=== PATIENT | male | born 1945 | race Caucasian/White ===

== ENCOUNTER 2016-05-11 06:09 | Day surgery (SDC) | payer BC ==
[~2016-05-11] VITALS: Ht 175.3 cm; Wt 66.4 kg
[2016-05-11] VITALS (7 sets, daily range): BP systolic 119–152; BP diastolic 67–98; PULSE 71–83; RESP 16–20; TEMP 97.6–98.8; O2SAT 9–95
[~2016-05-11 06:09] MED LIST: ADVA100A INH; APIX5TAB PO; CALC500T37 PO; CHOL50008 PO; FERR1TAB36 PO; FOLI400T PO; MAGN400T2 PO; METO50TA PO; MULTTAB67 PO; OMEGCAP PO; SPIRCAP INH; VITA10004 PO; VYTO10TA9 PO
[2016-05-11] MEDS ORDERED: SODIUM CHLORIDE 0.9% 1000 ML IV SCH (06:45)
[2016-05-11] MEDS ORDERED: POVIDONE IODINE 5% (ANTISEPSIS KIT) 4 APPLICATIONS EACH NARE SCH (06:45)
[2016-05-11] MEDS ORDERED: CHLORHEXIDINE GLUCONATE 2 % 1 PACK (2 CLOTHS) TOPICAL SCH (06:45)
[2016-05-11] MEDS ORDERED: ceFAZolin 2 GM PREMIX 50 ML - implanted port/tunneled catheter insertion IV SCH (06:45)
[2016-05-11] MEDS: VANCOMYCIN 1000 MG/NS 250 ML - implanted port/tunneled catheter IV SCH ×4 (07:36→09:09)
[2016-05-11] MEDS ORDERED: MIDAZOLAM HCL 5 MG/5 ML VIAL ONE (08:05)
[2016-05-11] MEDS ORDERED: fentaNYL CITRATE 250 MCG/5 ML AMP ONE (08:05)
[2016-05-11] MEDS ORDERED: LIDOCAINE 1%/EPINEPHrine 1:100,000 SOLN 20 ML VIAL ONE (08:12)
--- NOTE | 2016-05-11 09:14 | PD.RAD ---
Post Procedure Progress Note Pre Procedure Diagnosis: (1) Carcinoma of ascending colon Post Procedure Diagnosis: (1) Carcinoma of ascending colon Procedure Date: May 11, 2016 Supervising Radiologist: Ariel Patrick Proceduralist/Assist: José Miguel Metz RT(R), RT Andres(R) Anesthesia: Conscious Sedation Plan of Activity Patient to Unit: ROPU Patient Condition: Good See PACS Report for procedural detail/treatment Central Venous Access Device Procedure 1 Right Internal Jugular Infusaport Placement single lumen Ariel Patrick MD May 11, 2016 09:14
[2016-05-11] MEDS ORDERED: SODIUM CHLORIDE 0.9% FLUSH 5 ML FLUSH IVF PRN (09:15)
--- NOTE | 2016-05-11 11:39 | RADRPT ---
EXAM DATE/TIME: 05/11/2016 08:02 [place] COMPARISON: No previous studies available for comparison. INDICATIONS : Patient presents with malignant neoplasm of cecum in need of port placement for chemotherapy treatmen t. MEDICAL HISTORY : Skin cancer COPD Anemia Smoker Cecum cancer AFIB Hemorroids SURGICAL HISTORY : Bronchoscopy Coronary angiogram Cervical lymph node bx Partial colectomy Colonoscopy Skin cancer removed ENCOUNTER: Initial ACUITY: 7-11 months PAIN SCORE: 0/10 LOCATION: N/.A FLUORO TIME: 0.4 minutes SEDATION TIME: 30 minutes ACCESS: Right internal jugular vein SEDATION: 1.) 5 mg midazolam (Versed) IV 2.) 250 mcg fentanyl (Sublimaze) IV Prophylactic antibiotics were administered with appropriate pre-procedure timing. Vancomycin within 2 hours of procedure, Ancef (or alternative) within 1 hour of procedure. DEVICE: 1. 8 Polish single lumen Bard Power Port PROCEDURE : 1. Continuous pulse oximetry and EKG monitoring. 2. Intravenous conscious sedation. 3. Ultrasound guidance for venous access. 4. Fluoroscopic guided implantable central venous port placement. The patient was placed supine. The neck was prepped in sterile fashion. Full sterile technique was u sed, including cap, mask, sterile gloves and gown, and a large sterile sheet. Hand hygiene and 2% ch lorhexidine Betadine was utilized per protocol for cutaneous antisepsis with appropriate dry time for site. The skin and subcutaneous tissues were infiltrated with local anesthetic solution. Under direct ultrasound guidance, central venous access was accomplished in the targeted vessel. The ultrasound images depicting access guidance were stored and saved to PACS for permanent record. A s ubcutaneous pocket was created using blunt dissection. The port was introduced to the pocket. The c atheter tubing was fed through a subcutaneous tunnel to the venotomy site. The catheter tubing was c ut to a suitable length and then was introduced through a valved Peel-Away sheath and positioned with catheter tubing tip at the cavo-atrial junction level. The pocket incision was closed with subcutic ular Vicryl suture. Steri-Strips were applied. The port was flushed and locked with heparin solutio n per protocol. Sterile dressing was applied to the site. The patient tolerated the procedure well. Conscious sedation was performed with the prescribed dosages and duration as above. The patient juan manuel ated the procedure well and there were no complications. EKG and oximetry remained stable throughout the procedure. The patient was sent to post anesthesia recovery in stable condition. CONCLUSION: Uncomplicated ultrasound and fluoroscopic guided implanted central venous port catheter placement as described in detail above. An 8 [place] Power port was placed. Ariel Patrick MD on May 11, 2016 at 11:38 Board Certified Radiologist. This report was verified electronically.
== END 2016-05-11 12:15 | disposition home or self-care (01) ==
LOC: HROP 06:09 → HRIP 06:10 → HROP 12:15
PROVIDERS: ATTEND Internal Medicine Hematology & Oncology
DX: Z45.2 Encounter for adjustment and management of vascular access device (principal); C18.2 Malignant neoplasm of ascending colon; C18.0 Malignant neoplasm of cecum; I48.91 Unspecified atrial fibrillation; J44.9 Chronic obstructive pulmonary disease, unspecified; Z85.828 Personal history of other malignant neoplasm of skin
CPT/HCPCS: 36561; 76937; 77001; 99152; 99153; C1788; J0690; J1642; J2250; J3010; J3370; J7030; J7050